=== PATIENT | male | born 1950 | race Caucasian/White ===

== ENCOUNTER 2023-03-30 15:45 | Outpatient (REF) | payer MEDICARE, SELFPAY ==
[2023-03-30 15:17] LABS: Abs Immature Grans 0.02 10^3/uL (0.0-0.06); Absolute Basophil Count 0.04 10^3/uL (0.0-0.2); Absolute Eosinophil Count 0.19 10^3/uL (0.0-0.7); Absolute Lymphocyte Count 2.32 10^3/uL (1.2-3.4); Absolute Monocyte Count 0.66 10^3/uL (0.1-0.8); Absolute Neutrophil Count 2.83 10^3/uL (1.2-6.7); Basophils % 0.7; Eosinophils % 3.1; HCT 45.4 % (40.0-50.0); HGB 15.7 g/dL (13.5-17.5); Immature Grans % 0.3; Lymphocytes % 38.3; MCH 32.8 pg (27.0-33.0); MCHC 34.6 % (32.0-36.0); MCV 95 fL (80-95); MPV 10.9 fL (8.0-11.0); Monocytes % 10.9; Neutrophils % 46.7; Platelet Count 223 10^3/uL (130-400); RBC 4.78 10^6/uL (4.36-5.78); RDW 12.3 % (11.8-14.1); RDW-SD 43.4 fL; WBC 6.06 10^3/uL (4.4-10.8)
[2023-03-30 16:05] LABS: ALT 41 U/L (16-63); AST 28 U/L (15-37); Albumin 3.7 g/dL (3.4-5.0); Alkaline Phosphatase 60 U/L (46-116); Anion Gap 9.3 mmol/L (3-11); BUN 11 mg/dL (7-18); Bilirubin, Total 0.6 mg/dL (0.2-1.0); CO2 27.7 mmol/L (21.0-32.0); CREATININE 0.6 mg/dL (0.70-1.30); Calcium 8.8 mg/dL (8.5-10.1); Calculated LDL 117 mg/dL (<100); Chloride 105 mmol/L (98-107); Cholesterol 188 mg/dL (<200); Estimated GFR 102.56 (mL/min/1.73m2); Folate > 20.0 ng/mL (8.6-20.0); Glucose 89 mg/dL (74-106); HDL Cholesterol 45 mg/dL (40-60); Magnesium 1.9 mg/dL (1.8-2.4); Potassium 4.3 mmol/L (3.5-5.1); Sodium 142 mmol/L (136-145); Total Protein 7.1 g/dL (6.4-8.2); Triglyceride 134 mg/dL (<150); Vitamin B12 271 pg/mL (193-986)
== END 2023-03-30 15:46 | disposition home or self-care (01) ==
LOC: NCHCN 15:45
PROVIDERS: Visit Provider Family Medicine
DX: D52.9 Folate deficiency anemia, unspecified (principal); E78.5 Hyperlipidemia, unspecified; R20.2 Paresthesia of skin; K76.0 Fatty (change of) liver, not elsewhere classified; E66.9 Obesity, unspecified; R97.20 Elevated prostate specific antigen [PSA]; Z12.5 Encounter for screening for malignant neoplasm of prostate
CPT/HCPCS: 80053; 80061; 84153; 82607; 82746; 83735; 85025

== ENCOUNTER 2024-04-01 08:35 | Outpatient (REF) | payer MEDICARE, SELFPAY ==
[2024-04-01 15:46] LABS: BUN 11 mg/dL (7-18); CREATININE 0.8 mg/dL (0.70-1.30); Calcium 9.3 mg/dL (8.5-10.1); Calculated LDL 83 mg/dL (<100); Chloride 104 mmol/L (98-107); Cholesterol 145 mg/dL (<200); Estimated GFR 93.45 (mL/min/1.73m2); Glucose 113 mg/dL (74-106); HDL Cholesterol 45 mg/dL (40-60); Potassium 4.3 mmol/L (3.5-5.1); Sodium 141 mmol/L (136-145); Triglyceride 86 mg/dL (<150)
[2024-04-01 23:18] LABS: PSA, Screening 3.5 ng/mL (<=6.5)
== END 2024-04-01 08:36 | disposition home or self-care (01) ==
LOC: NCHCN 08:35
PROVIDERS: PCP Family Medicine; Visit Provider Family Medicine
DX: E78.5 Hyperlipidemia, unspecified (principal); K76.0 Fatty (change of) liver, not elsewhere classified; E66.8 Other obesity; Z12.5 Encounter for screening for malignant neoplasm of prostate
CPT/HCPCS: 80048; 80061; 84153

== ENCOUNTER 2025-04-13 16:02 | Outpatient (REF) | payer MEDICARE, SELFPAY | END 2025-04-13 16:03 | disposition home or self-care (01) | LOC: NCHCN 16:02 | PROVIDERS: PCP Family Medicine; Visit Provider Family Medicine | DX: R30.0 Dysuria (principal); R82.89 Other abnormal findings on cytological and histological examination of urine | CPT/HCPCS: 87086 ==

== ENCOUNTER 2025-05-21 15:01 | Outpatient (REF) | payer MEDICARE, SELFPAY ==
[2025-05-21 20:58] LABS: HCT 42.7 % (40.0-50.0); HGB 14.5 g/dL (13.5-17.5); MCH 32.2 pg (27.0-33.0); MCHC 34.0 % (32.0-36.0); MCV 95 fL (80-95); MPV 11.1 fL (8.0-11.0); Platelet Count 236 10^3/uL (130-400); RBC 4.51 10^6/uL (4.36-5.78); RDW 12.3 % (11.8-14.1); RDW-SD 43.0 fL; WBC 7.13 10^3/uL (4.4-10.8)
[2025-05-21 21:09] LABS: ALT 44 U/L (16-63); AST 28 U/L (15-37); Albumin 3.7 g/dL (3.4-5.0); Alkaline Phosphatase 96 U/L (46-116); Anion Gap 8.4 mmol/L (3-11); BUN 19 mg/dL (7-18); Bilirubin, Total 0.3 mg/dL (0.2-1.0); CO2 24.6 mmol/L (21.0-32.0); Calcium 9.3 mg/dL (8.5-10.1); Chloride 104 mmol/L (98-107); Estimated GFR 101.30 (mL/min/1.73m2); Glucose 98 mg/dL (74-106); Potassium 4.1 mmol/L (3.5-5.1); Sodium 137 mmol/L (136-145); Total Protein 7.2 g/dL (6.4-8.2)
[2025-05-21 21:22] LABS: COMMENT (LAB VIEW ONLY) 58.25 mg/dL; Microalb ug/mg Crea 5.5 ug/mg Cr
[2025-05-22 18:16] LABS: PSA, Diagnostic 3.2 ng/mL (<=6.5)
== END 2025-05-21 15:02 | disposition home or self-care (01) ==
LOC: NCHCN 15:01
PROVIDERS: PCP Family Medicine; Visit Provider Family Medicine
DX: R35.0 Frequency of micturition (principal)
CPT/HCPCS: 80053; 85027; 82043; 82570; 84153